=== PATIENT | male | born 1965 | race Two or more races ===

== ENCOUNTER 2016-09-15 01:00 | Inpatient (IN) | payer MEDICAID ==
[2016-09-15 01:39] VITALS: BP 138/89
[2016-09-15] MEDS ORDERED: Hydrocodone/APAP 5mg/325mg Tab PO PRN (02:41)
[2016-09-15] MEDS ORDERED: Maalox 30 mL Cup PO PRN (02:41)
[2016-09-15] MEDS ORDERED: D5-0.9%NS 1,000 ML IV SCH (02:45)
[2016-09-15 03:03] LABS: % BASOPHILS 0.4 % (0.0-2.0); % EOSINOPHILS 0.1 % (0.0-5.0); % LYMPHOCYTES 3.5 % (20.0-50.0); % MONOCYTES 9.2 % (2.0-10.0); % NEUTROPHILS 86.8 % (40.0-80.0); HEMATOCRIT 39.6 % (39.0-49.0); HEMOGLOBIN 13.6 gm/dL (13.2-17.3); MEAN CELL VOLUME 91.6 fl (80-99); MEAN CORPUSCULAR HEMOGLOBIN 31.4 pg (26.0-30.0); MEAN CORPUSCULAR HGB CONC 34.3 pg (28.0-36.0); MEAN PLATELET VOLUME 7.4 fl; NEUTROPHILE ABSOLUTE 13.7 Th/cmm (1.8-8.0); PLATELET COUNT 249 Th/cmm (150-400); RED BLOOD COUNT 4.32 Mil/cmm (4.30-5.70); RED CELL DISTRIBUTION WIDTH 11.7 % (11.5-20.0)
[2016-09-15 03:12] LABS: WHITE BLOOD COUNT 15.9 Th/cmm (4.8-10.8)
[2016-09-15 03:28] LABS: PROTHROMBIN TIME (TEST) 10.4 SECONDS (9.5-11.5)
[2016-09-15 03:29] LABS: ALB/GLOB RATIO 1.5 (1.0-1.8); ALKALINE PHOSPHATASE 82 U/L (34-104); ANION GAP 7.2 (7.0-16.0); BILIRUBIN,TOTAL 0.6 mg/dL (0.3-1.0); BUN - UREA NITROGEN 16 mg/dL (7-25); CARBON DIOXIDE 26.8 mEq/L (21.0-31.0); CHLORIDE 107 mEq/L (98-107); CREATININE - SERUM 0.8 mg/dL (0.7-1.3); GLUCOSE 185 mg/dL (70-105); SGOT 30 U/L (13-39); SGPT/ALT 25 U/L (7-52); SODIUM SERUM 137 mEq/L (136-145)
[2016-09-15 03:30] LABS: CHOLESTEROL 162 mg/dL (<200); TRIGLYCERIDES 193 mg/dL (<150)
[2016-09-15] MEDS: Morphine Sulfate 2 mg/mL 1mL Syr IVP PRN ×4 (05:50→21:51)
--- NOTE | 2016-09-15 09:43 | Diagnostic Imaging Report ---
CHEST X-RAY: AP view INDICATION: Shortness of breath COMPARISON: None FINDINGS: Mild increased interstitial lung markings are noted. No focal consolidation or effusions. Suboptimal lung volumes are noted. Heart size is at the upper limits of normal. Osseous structures are intact. IMPRESSION: Mild increased lung markings. Note that a marginal degree of congestion cannot be excluded. No focal consolidation identified.
--- NOTE | 2016-09-15 09:54 | Diagnostic Imaging Report ---
Right ankle 2 views Indication: Fracture Comparison: none Findings: Exam is limited due to overlying cast material. There is a severe comminuted fracture of the distal tibia. The fracture may extend to the articular surface. There are also comminuted fractures of the mid and distal fibular shafts. Impression: Limited exam due to overlying cast. There is severe comminuted fracture of the distal tibia. There are also comminuted fractures involving the mid and distal fibular shafts. Please correlate clinically.
[2016-09-15 10:17] LABS: URINE BILIRUBIN NEGATIVE (NEGATIVE); URINE BLOOD NEGATIVE (NEGATIVE); URINE COLOR YELLOW; URINE GLUCOSE (UA) NEGATIVE (NEGATIVE); URINE KETONE NEGATIVE (NEGATIVE); URINE PROTEIN NEGATIVE (NEGATIVE); URINE UROBILINOGEN 0.2 E.U./dL (0.2 - 1.0)
[2016-09-15 10:18] LABS: URINE BACTERIA NONE SEEN /hpf (NONE SEEN); URINE EPITHELIAL CELLS RARE /lpf (FEW); URINE RBC 0-2 /hpf (0-5)
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
[2016-09-15] MEDS ORDERED: Sodium Chloride 0.9% IRR 1,000 ML IV ONE (15:55)
--- NOTE | 2016-09-15 15:55 | Admit Criteria Form ---
Admit Criteria Forms - Admit Criteria Diagnosis: MUSCULOSKELETAL DISEASE [facility] Clinical Indications for Admission to Inpatient Care (Place 'X' for any and all applicable criteria): Hospital admission is needed for appropriate care of the patient because of 1 or more of the following: [X ]I. Fracture, dislocation, or other musculoskeletal injury requiring inpatient care(medical) as indicated by 1 or more of the following(4)(5)(6)(7) [ ]a) Vertebral fracture requiring observation for instability or neurologic compromise (8) [ ]b) Compartment syndrome (proven or cannot be ruled out during observation level of care) (9) [ ]c) Limb-threatening injury [ ]d) Major injury requiring inpatient stabilization such as traction initiation or external fixation before internal fixation or closure of complex or open fracture [X ]e) Major injury requiring inpatient treatment after emergency or observation level care (as appropriate) [ ]f) Severe pain requiring acute inpatient management [ ]g) Injury with suspicion of abuse or neglect (eg., child, dependent elderly) [ ]II. Newly diagnosed or suspected bone, joint, or orthopedic device infection (e.g., osteomyelitis, septic arthritis) needing 1 or more of the following(1)(2)(3) [ ]a) IV antibiotics that cannot be initiated in other than inpatient setting (e.g., patient too unstable or home infusion not available) [ ]b) Device removal or replacement [ ]c) Bone or soft tissue debridement [ ]d) Joint drainage (drain placement or repetitive aspirations) [ ]III. Severe rheumatologic disease (e.g., systemic lupus erythematosus, rheumatoid arthritis) with complications or comorbidities (Also use Optimal Recovery Care Criteria or General Recovery Criteria as appropriate on the basis of predominant condition), including 1 or more of the following( 10)(11)(12)(13) [ ]a) Severe infection (e.g., CRUMB PACKER infection, sepsis) (14) [ ]b) Respiratory complications, including 1 or more of the following : [ ]i) Pleural effusion with respiratory compromise [ ]ii) Pulmonary hypertension with congestive failure [ ]iii) Respiratory failure [ ]iv) Pulmonary hemorrhage (15) [ ]c) Hematologic disease, including 1 or more of the following: [ ]i) Coagulopathy with bleeding [ ]ii) Thrombosis with hypercoagulable state [ ]iii) Thrombotic thrombocytopenic purpura [ ]d) Cerebritis with seizures, psychosis, or other severe abnormalities [ ]e) Vertebral destruction with monitoring needed for cervical myelopathy& possible respiratory compromise [ ]f) Exacerbation that requires inpatient treatment (e.g., intravenous immunosuppression) (16) [ ]g) Acute renal failure [ ]h) Cerebritis with seizures, psychosis, Altered mental status, or other neurologic abnormalities [ ]i) Pericardial effusion with tamponade [ ]j) Vertebral destruction, with monitoring needed for cervical myelopathy and possible respiratory compromise [ ]IV. Severe vasculitis with complications or comorbidities (Also use Optimal Recovery Care Criteria General Recovery Criteria as appropriate on the basis of predominant condition), including 1 or more of the following(11)(12)(17)(18)(19)(20) [ ]a) Exacerbation that requires inpatient treatment (e.g., intravenous immunosuppression) (19)(21) [ ]b) Pulmonary hemorrhage (15) [ ]c) CRUMB PACKER vasculitis with seizures, psychosis, Altered mental status that is severe or persistent, or other severe abnormalities (22) [ ]d) Cerebral infarction [ ]e) Gastrointestinal ischemia [ ]f) Gangrene or threatened amputation [ ]g) Renal failure (16) [ ]h) Other significant complications of vasculitis ( eg., tissue or organ ischemia, organ dysfunction ) [ ]V. Severe myopathy as indicated by 1 or more of the following (28)(29) [ ]a) New onset of airway compromise or inability to swallow [ ]b) Respiratory deterioration with observation needed for impending respiratory failure [ ]c) Exacerbation that requires inpatient treatment (e.g., intravenous immunosuppression) [ ]. Severe crystal gout (arthropathy) indicated by 1 or more of the following (23)(24) [ ]a) Severe pain requiring acute inpatient management [ ]b) Exacerbation that requires inpatient treatment (e.g., intravenous treatment) [ ]VII.Rhabdomyolysis and 1 or more of the following (25)(26)(27) [ ]a) Acute renal failure [ ]b) Need for intravenous hydration after emergency or observation level care (as appropriate) [ ]c) Inability to maintain oral hydration [ ]d) Change in mental status [ ]e) Electrolyte abnormality that remains after emergency or observation level care (as appropriate) [ ]VIII Post amputation complication, as indicated by ANY ONE of the following [ ]a) Infection [ ]b) Dehiscence [ ]c) Myodesis failure [ ]IX. Severe pain requiring acute inpatient management due to musculoskeletal condition [ ]X. Musculoskeletal Disease and ALL of the following: [ ]a) Symptom or finding for which emergency and observation care have failed or are not considered appropriate (Use General Criteria: Observation Care as appropriate) [ ]b) Presence of ANY ONE of the following [ ]i) A General Admission Criteria [ ]ii) A Pediatric General Admission Criteria The original [facility] content created by [facility] has been revised. The portions of the content which have been revised are identified through the use of italic text or in bold, and [facility] has neither reviewed nor approved the modified material. All other unmodified content is copyright [facility]. Please see references footnoted in the original [facility] edition 2016 Admit Criteria Met?: Yes
[2016-09-15] MEDS ORDERED: Midazolam 1mg/ml 2 ml vial IV ONE (16:30)
[2016-09-15] MEDS ORDERED: Bupivacaine 0.75% 10 mL Vial ONE (16:34)
[2016-09-15] MEDS ORDERED: Meperidine 25 mg/mL 1mL Syr IVP PRN (16:48)
[2016-09-15] MEDS ORDERED: Lactated Ringer 1,000 ML IV SCH (17:00)
[2016-09-15] MEDS: Hydrocodone/APAP 10 mg/325 mg Tab PO PRN (22:27)
[2016-09-15] MEDS: Magnesium Hydroxide (MOM) 30 mL UDC PO PRN (23:37)
--- NOTE | 2016-09-16 00:20 | Operative Report ---
DATE OF SURGERY: 09/15/2016 SURGEON: Simon Goldsmith M.D. COLLEGE INTERN: ____ and Dr. Rolando Capone____. DETAILS OF THE OPERATION: After the patient was given the spinal anesthesia and sedation, the part was scrubbed and was draped in an aseptic manner. After examination under the fluoroscopy in AP and lateral of the right ankle, it was found there were many fragments of the ankle, distal tibia, they were intra-articular, markedly displaced and he had a laceration on the medial side communicating with the bone, so it was really a compound fracture of the right ankle. The original incision was enlarged distally as well as proximally for us to see the tibia and see all the fragments. This patient had a shortening of the right leg from the distal tibia to the talus because there were 6 to 7 fragment in between, which were not possible to put it together like a ____, so it was decided to put a plate on the medial side between the talus and the tibia, so as to keep the length of the leg and the bones, which were very loose were pacted in the space in between the distal tibia and the talus. The plafond of the tibia was completely smashed; there, it was not possible to put the bones together, so it was decided to pack them in between and then the wound was thoroughly irrigated. Bleeding points coagulated. Deep sutures were applied with a 2-0 Vicryl and skin with a 1-0 and 2-0 Vicryl and after the application of the bulky dressing, a ____shaped splint was applied and the patient was transferred to the recovery room in a satisfactory condition. The plan in this patient will be after the operation that it will have to be decided that this ankle will need to be fused and there is a possibility that it may need a josep and then that fracture may have to be done at later stage after this wound has healed. Postoperatively, he will be in the splint and the decision will be made for the plan of the operation for the fusion of the right ankle. JOB# [id number]
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
[2016-09-16] MEDS: Lactated Ringer 1,000 ML IV SCH ×2 (04:45→16:18)
[2016-09-16] MEDS: Morphine Sulfate 2 mg/mL 1mL Syr IVP PRN ×5 (05:39→22:50)
[2016-09-16 07:17] LABS: MEAN CORPUSCULAR HEMOGLOBIN 32.3 pg (26.0-30.0)
[2016-09-16 07:28] LABS: % EOSINOPHILS 0.2 % (0.0-5.0); % MONOCYTES 13.2 % (2.0-10.0); % NEUTROPHILS 78.6 % (40.0-80.0); MEAN CELL VOLUME 90.7 fl (80-99); MEAN CORPUSCULAR HGB CONC 35.6 pg (28.0-36.0); NEUTROPHILE ABSOLUTE 9.4 Th/cmm (1.8-8.0); PLATELET COUNT 210 Th/cmm (150-400); RED BLOOD COUNT 3.59 Mil/cmm (4.30-5.70); RED CELL DISTRIBUTION WIDTH 11.4 % (11.5-20.0)
[2016-09-16 07:37] LABS: BUN - UREA NITROGEN 10 mg/dL (7-25); BUN/CREATININE RATIO 14.3; CALCIUM SERUM 8.8 mg/dL (8.6-10.3); CARBON DIOXIDE 27.9 mEq/L (21.0-31.0); CHLORIDE 103 mEq/L (98-107); CREATININE - SERUM 0.7 mg/dL (0.7-1.3); GLUCOSE 148 mg/dL (70-105); POTASSIUM SERUM 3.9 mEq/L (3.5-5.1); SODIUM SERUM 135 mEq/L (136-145)
[2016-09-16 07:45] LABS: HEMOGLOBIN 11.6 gm/dL (13.2-17.3)
[2016-09-16 07:46] LABS: HEMATOCRIT 32.6 % (39.0-49.0)
[2016-09-16] MEDS: Hydrocodone/APAP 10 mg/325 mg Tab PO PRN (09:14)
[2016-09-16] MEDS: Magnesium Hydroxide (MOM) 30 mL UDC PO PRN (09:27)
[2016-09-17] MEDS: Hydrocodone/APAP 10 mg/325 mg Tab PO PRN ×2 (00:34→22:03)
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
[2016-09-17 06:00] LABS: % BASOPHILS 0.7 % (0.0-2.0); % EOSINOPHILS 0.8 % (0.0-5.0); % LYMPHOCYTES 9.2 % (20.0-50.0); % MONOCYTES 12.2 % (2.0-10.0); % NEUTROPHILS 77.1 % (40.0-80.0); HEMATOCRIT 33.7 % (39.0-49.0); HEMOGLOBIN 11.7 gm/dL (13.2-17.3); MEAN CELL VOLUME 92.3 fl (80-99); MEAN CORPUSCULAR HGB CONC 34.6 pg (28.0-36.0); MEAN PLATELET VOLUME 7.3 fl; NEUTROPHILE ABSOLUTE 8.7 Th/cmm (1.8-8.0); PLATELET COUNT 216 Th/cmm (150-400); RED BLOOD COUNT 3.65 Mil/cmm (4.30-5.70); RED CELL DISTRIBUTION WIDTH 11.9 % (11.5-20.0); WHITE BLOOD COUNT 11.3 Th/cmm (4.8-10.8)
[2016-09-17 06:18] LABS: ANION GAP 8.8 (7.0-16.0); BUN - UREA NITROGEN 10 mg/dL (7-25); BUN/CREATININE RATIO 12.5; CARBON DIOXIDE 29.3 mEq/L (21.0-31.0); CHLORIDE 102 mEq/L (98-107); CREATININE - SERUM 0.8 mg/dL (0.7-1.3); GLUCOSE 141 mg/dL (70-105); POTASSIUM SERUM 4.1 mEq/L (3.5-5.1); SODIUM SERUM 136 mEq/L (136-145)
[2016-09-17] MEDS: APAP/Codeine 300 mg/30 mg Tab PO PRN (08:58)
[2016-09-17] MEDS: Morphine Sulfate 2 mg/mL 1mL Syr IVP PRN ×2 (12:20→18:58)
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
[2016-09-17] MEDS: Cefepime 2 GM in Sodium Chloride 0.9% 100 ML IV SCH (14:21)
[2016-09-18] MEDS: Cefepime 2 GM in Sodium Chloride 0.9% 100 ML IV SCH ×2 (00:21→13:24)
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
[2016-09-18 06:03] LABS: % BASOPHILS 0.9 % (0.0-2.0); % EOSINOPHILS 1.4 % (0.0-5.0); % LYMPHOCYTES 12.5 % (20.0-50.0); % NEUTROPHILS 73.2 % (40.0-80.0); HEMATOCRIT 34.5 % (39.0-49.0); HEMOGLOBIN 11.9 gm/dL (13.2-17.3); MEAN CELL VOLUME 90.3 fl (80-99); MEAN CORPUSCULAR HEMOGLOBIN 31.2 pg (26.0-30.0); MEAN CORPUSCULAR HGB CONC 34.6 pg (28.0-36.0); MEAN PLATELET VOLUME 7.4 fl; NEUTROPHILE ABSOLUTE 7.6 Th/cmm (1.8-8.0); PLATELET COUNT 264 Th/cmm (150-400); RED BLOOD COUNT 3.82 Mil/cmm (4.30-5.70); RED CELL DISTRIBUTION WIDTH 11.5 % (11.5-20.0); WHITE BLOOD COUNT 10.3 Th/cmm (4.8-10.8)
[2016-09-18 06:24] LABS: ALB/GLOB RATIO 1.2 (1.0-1.8); ALKALINE PHOSPHATASE 71 U/L (34-104); ANION GAP 12.7 (7.0-16.0); BILIRUBIN,TOTAL 1.1 mg/dL (0.3-1.0); BUN - UREA NITROGEN 15 mg/dL (7-25); BUN/CREATININE RATIO 21.4; CALCIUM SERUM 9.4 mg/dL (8.6-10.3); CARBON DIOXIDE 28.4 mEq/L (21.0-31.0); CHLORIDE 102 mEq/L (98-107); CREATININE - SERUM 0.7 mg/dL (0.7-1.3); GLUCOSE 121 mg/dL (70-105); POTASSIUM SERUM 4.1 mEq/L (3.5-5.1); SGOT 57 U/L (13-39); SGPT/ALT 45 U/L (7-52); SODIUM SERUM 139 mEq/L (136-145)
[2016-09-18] MEDS: Hydrocodone/APAP 10 mg/325 mg Tab PO PRN ×2 (08:28→15:24)
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
[2016-09-19] MEDS: Cefepime 2 GM in Sodium Chloride 0.9% 100 ML IV SCH ×2 (01:37→12:15)
[2016-09-19 05:48] LABS: % BASOPHILS 0.9 % (0.0-2.0); % EOSINOPHILS 2.1 % (0.0-5.0); % LYMPHOCYTES 15.5 % (20.0-50.0); % MONOCYTES 11.2 % (2.0-10.0); % NEUTROPHILS 70.3 % (40.0-80.0); HEMOGLOBIN 10.5 gm/dL (13.2-17.3); MEAN CELL VOLUME 90.7 fl (80-99); MEAN CORPUSCULAR HEMOGLOBIN 31.5 pg (26.0-30.0); MEAN CORPUSCULAR HGB CONC 34.7 pg (28.0-36.0); MEAN PLATELET VOLUME 7.3 fl; NEUTROPHILE ABSOLUTE 6.6 Th/cmm (1.8-8.0); PLATELET COUNT 292 Th/cmm (150-400); RED BLOOD COUNT 3.34 Mil/cmm (4.30-5.70); RED CELL DISTRIBUTION WIDTH 11.7 % (11.5-20.0); WHITE BLOOD COUNT 9.5 Th/cmm (4.8-10.8)
[2016-09-19 05:59] LABS: HEMATOCRIT 30.2 % (39.0-49.0)
[2016-09-19 06:39] LABS: ANION GAP 9.7 (7.0-16.0); BUN - UREA NITROGEN 17 mg/dL (7-25); BUN/CREATININE RATIO 28.3; CALCIUM SERUM 8.9 mg/dL (8.6-10.3); CHLORIDE 102 mEq/L (98-107); CREATININE - SERUM 0.6 mg/dL (0.7-1.3); GLUCOSE 126 mg/dL (70-105); POTASSIUM SERUM 3.7 mEq/L (3.5-5.1); SODIUM SERUM 136 mEq/L (136-145)
--- NOTE | 2016-09-19 11:46 | Diagnostic Imaging Report ---
Right lower extremity DVT study HISTORY: Pain rule out DVT COMPARISON: None Technique: Longitudinal and transverse sonographic images of the right lower extremity veins were obtained with doppler analysis. FINDINGS: There is normal compressibility, augmentation and phasicity of the right common femoral, superficial femoral, and popliteal vein. The right posterior tibial vein and peroneal vein was not visualized due to overlying bandage from recent surgery. IMPRESSION: Nonvisualization of the right posterior tibial and peroneal veins due to overlying bandage from recent surgery. Otherwise no evidence of DVT formation.
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
[2016-09-19] MEDS: Hydrocodone/APAP 10 mg/325 mg Tab PO PRN ×2 (13:41→19:57)
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
[2016-09-20] MEDS: APAP/Codeine 300 mg/30 mg Tab PO PRN ×2 (00:12→20:44)
[2016-09-20] MEDS: Cefepime 2 GM in Sodium Chloride 0.9% 100 ML IV SCH ×2 (00:36→13:24)
[2016-09-20] MEDS: Hydrocodone/APAP 10 mg/325 mg Tab PO PRN ×4 (03:19→22:26)
--- NOTE | 2016-09-20 10:39 | Diagnostic Imaging Report ---
Right lower extremity arterial Doppler study HISTORY: Recent surgery. Note, recent right lower extremity DVT exam was negative for DVT COMPARISON: Right lower extremity venous Doppler the same day Technique: Longitudinal and transverse sonographic images of the right lower extremity arteries were obtained with doppler analysis. FINDINGS: Exam of the right side demonstrates intimal thickening and mild to moderate generalized atherosclerotic vascular disease. Triphasic flow is demonstrated from the right common femoral to the right posterior tibial artery. The right anterior tibialis, posterior tibialis, and dorsalis pedis arteries were not visualized due to overlying bandages. ABIs were also not able to be performed. IMPRESSION: Mild/moderate atherosclerotic vascular disease of the right lower extremity. No evidence of hemodynamically significant stenosis. Note that the right tibialis anterior, tibialis posterior, and dorsalis pedis artery were not able to be visualized due to overlying bandages.
--- NOTE | 2016-09-20 13:09 | Diagnostic Imaging Report ---
CHEST X-RAY: AP view INDICATION: PICC line placement z COMPARISON: 09/15/2016 FINDINGS: Left PICC line is in place with tip in the SVC. No focal consolidation or pleural effusions. Left basal subsegmental atelectasis versus scarring is noted. Mild chronic changes are noted. Heart size is normal. Osseous structures are intact. IMPRESSION: Interval new left PICC line placement with tip in SVC. Left basal subsegmental atelectasis versus scarring. No focal consolidation identified.
--- NOTE | 2016-09-20 14:46 | Diagnostic Imaging Report ---
Fluoroscopy was utilized for facilitation of internal fixation of the right ankle. Please refer to the surgical report for complete details.
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
[2016-09-21] MEDS: Cefepime 2 GM in Sodium Chloride 0.9% 100 ML IV SCH ×2 (01:32→13:30)
[2016-09-21] MEDS: Hydrocodone/APAP 10 mg/325 mg Tab PO PRN ×4 (03:54→22:05)
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
[2016-09-21 06:03] LABS: % BASOPHILS 0.2 % (0.0-2.0); % EOSINOPHILS 2.4 % (0.0-5.0); % LYMPHOCYTES 12.4 % (20.0-50.0); % MONOCYTES 13.3 % (2.0-10.0); % NEUTROPHILS 71.7 % (40.0-80.0); HEMOGLOBIN 10.2 gm/dL (13.2-17.3); MEAN CELL VOLUME 90.2 fl (80-99); MEAN CORPUSCULAR HEMOGLOBIN 31.6 pg (26.0-30.0); MEAN CORPUSCULAR HGB CONC 35.1 pg (28.0-36.0); MEAN PLATELET VOLUME 6.8 fl; NEUTROPHILE ABSOLUTE 7.2 Th/cmm (1.8-8.0); RED BLOOD COUNT 3.21 Mil/cmm (4.30-5.70); RED CELL DISTRIBUTION WIDTH 11.3 % (11.5-20.0); WHITE BLOOD COUNT 9.9 Th/cmm (4.8-10.8)
[2016-09-21 06:13] LABS: PLATELET COUNT 357 Th/cmm (150-400)
[2016-09-21 09:34] LABS: ANION GAP 6.3 (7.0-16.0); BUN - UREA NITROGEN 17 mg/dL (7-25); BUN/CREATININE RATIO 24.3; CALCIUM SERUM 9.5 mg/dL (8.6-10.3); CARBON DIOXIDE 27.1 mEq/L (21.0-31.0); CHLORIDE 103 mEq/L (98-107); CREATININE - SERUM 0.7 mg/dL (0.7-1.3); GLUCOSE 217 mg/dL (70-105); POTASSIUM SERUM 3.4 mEq/L (3.5-5.1); SODIUM SERUM 133 mEq/L (136-145)
[2016-09-21 09:36] LABS: VANCOMYCIN TROUGH 5.7 ug/mL (10-20)
[2016-09-21] MEDS: Magnesium Hydroxide (MOM) 30 mL UDC PO PRN (10:08)
[2016-09-21] MEDS ORDERED: Vancomycin HCl 1.5 GM in Sodium Chloride 0.9% 500 ML IV SCH (10:15)
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
[2016-09-21] MEDS ORDERED: Potassium Chloride 20 mEq ER Tab PO ONE (17:58)
[2016-09-22] MEDS: Cefepime 2 GM in Sodium Chloride 0.9% 100 ML IV SCH ×2 (02:11→15:02)
[2016-09-22] MEDS: Hydrocodone/APAP 10 mg/325 mg Tab PO PRN ×2 (05:39→21:55)
--- NOTE | 2016-09-22 05:49 | Progress Notes ---
DATE: 09/21/2016 SUBJECTIVE: The patient is awake, alert. The patient is receiving inpatient rehab. The patient is on IV antibiotics. OBJECTIVE: VITAL SIGNS: Temperature is 97.7, pulse 87, blood pressure per nursing, respirations 18, O2 sat 97% on room air. CARDIAC: S1, S2. RESPIRATORY: Clear. GASTROINTESTINAL: Soft, positive bowel sounds. LABORATORY STUDIES: Labs on the patient is: Hematology: WBC 9.9, hemoglobin 10.2, hematocrit 29.0, platelet count per labs, 12% lymphocytes, 13% monocytes. Chemistry: Sodium 133, potassium 3.4, chloride 103, bicarbonate 27, anion gap 6.3, BUN 17, creatinine 0.7, GFR per labs, glucose 217, calcium is 9.5. MICROBIOLOGY: MRSA screening from 09/15/2016 negative. Urine culture from 09/17/2016 shows no growth. Blood culture from 09/18/2016, negative. IMAGING DATA: Chest x-ray from 09/20/2016 showed left atelectasis versus scarring, no focal consolidation is identified. ASSESSMENT: 1. Status post open reduction and internal fixation of right tibia and fibula. 2. History of comminuted fracture, right ankle, tibia and fibula. 3. Debility. 4. Anemia. 5. Hyponatremia. 6. Hypokalemia. 7. Hyperglycemia. PLAN: Continue current medication. Obtain labs in a.m. Further recommendations per consults. Thank you very much. JOB# [id number] [facility]
[2016-09-22 05:55] LABS: % BASOPHILS 0.3 % (0.0-2.0); % EOSINOPHILS 2.4 % (0.0-5.0); % LYMPHOCYTES 12.7 % (20.0-50.0); % MONOCYTES 12.7 % (2.0-10.0); % NEUTROPHILS 71.9 % (40.0-80.0); HEMATOCRIT 29.2 % (39.0-49.0); HEMOGLOBIN 10.1 gm/dL (13.2-17.3); MEAN CELL VOLUME 90.6 fl (80-99); MEAN CORPUSCULAR HEMOGLOBIN 31.5 pg (26.0-30.0); MEAN CORPUSCULAR HGB CONC 34.8 pg (28.0-36.0); MEAN PLATELET VOLUME 6.9 fl; NEUTROPHILE ABSOLUTE 7.3 Th/cmm (1.8-8.0); PLATELET COUNT 400 Th/cmm (150-400); RED BLOOD COUNT 3.22 Mil/cmm (4.30-5.70); RED CELL DISTRIBUTION WIDTH 11.3 % (11.5-20.0); WHITE BLOOD COUNT 10.1 Th/cmm (4.8-10.8)
[2016-09-22 06:14] LABS: ALB/GLOB RATIO 1.2 (1.0-1.8); ALKALINE PHOSPHATASE 89 U/L (34-104); ANION GAP 7.1 (7.0-16.0); BUN - UREA NITROGEN 14 mg/dL (7-25); BUN/CREATININE RATIO 23.3; CALCIUM SERUM 9.3 mg/dL (8.6-10.3); CARBON DIOXIDE 28.8 mEq/L (21.0-31.0); CHLORIDE 103 mEq/L (98-107); CREATININE - SERUM 0.6 mg/dL (0.7-1.3); GLUCOSE 121 mg/dL (70-105); POTASSIUM SERUM 3.9 mEq/L (3.5-5.1); SGOT 76 U/L (13-39); SGPT/ALT 118 U/L (7-52); SODIUM SERUM 135 mEq/L (136-145)
--- NOTE | 2016-09-22 12:48 | Diagnostic Imaging Report ---
Right ankle 2 views Indication: Trauma, preop Comparison: Previous right ankle x-ray on 09/15/2016 demonstrating severely comminuted fractures. Findings: There is sideplate and screw fixation of the distal tibia to the talus with severely comminuted intra-articular fracture of the distal tibia again noted. Displaced fractures of the proximal to mid fibular shaft are again noted. No x-ray evidence of hardware loosening. Impression: Interval sideplate and screw fixation of the distal tibia to the talus with severely comminuted distal tibial fracture again noted with displacement again noted. Fibular shaft fractures. In the setting of trauma, if clinical symptoms persist and there is continued concern for an occult fracture, follow up exams in 5-7 days is suggested.
[2016-09-22] MEDS: APAP/Codeine 300 mg/30 mg Tab PO PRN (20:01)
[2016-09-23] MEDS: Hydrocodone/APAP 10 mg/325 mg Tab PO PRN ×2 (03:06→10:49)
[2016-09-23] MEDS: Cefepime 2 GM in Sodium Chloride 0.9% 100 ML IV SCH (03:26)
[2016-09-23 06:00] LABS: % LYMPHOCYTES 14.5 % (20.0-50.0); % MONOCYTES 12.2 % (2.0-10.0); % NEUTROPHILS 69.3 % (40.0-80.0); HEMATOCRIT 28.5 % (39.0-49.0); MEAN CELL VOLUME 90.5 fl (80-99); MEAN CORPUSCULAR HEMOGLOBIN 31.6 pg (26.0-30.0); MEAN CORPUSCULAR HGB CONC 34.9 pg (28.0-36.0); MEAN PLATELET VOLUME 6.6 fl; PLATELET COUNT 417 Th/cmm (150-400); RED BLOOD COUNT 3.15 Mil/cmm (4.30-5.70); RED CELL DISTRIBUTION WIDTH 11.4 % (11.5-20.0); WHITE BLOOD COUNT 8.8 Th/cmm (4.8-10.8)
[2016-09-23] MEDS: APAP/Codeine 300 mg/30 mg Tab PO PRN (06:03)
[2016-09-23 06:33] LABS: ALB/GLOB RATIO 1.1 (1.0-1.8); ALKALINE PHOSPHATASE 83 U/L (34-104); ANION GAP 2.1 (7.0-16.0); BILIRUBIN,TOTAL 0.9 mg/dL (0.3-1.0); BUN - UREA NITROGEN 14 mg/dL (7-25); BUN/CREATININE RATIO 23.3; CALCIUM SERUM 8.7 mg/dL (8.6-10.3); CARBON DIOXIDE 30.9 mEq/L (21.0-31.0); CHLORIDE 106 mEq/L (98-107); CREATININE - SERUM 0.6 mg/dL (0.7-1.3); GLUCOSE 109 mg/dL (70-105); SGOT 63 U/L (13-39); SGPT/ALT 111 U/L (7-52); SODIUM SERUM 135 mEq/L (136-145)
--- NOTE | 2016-09-23 08:15 | Progress Notes ---
DATE: 09/22/2016 SUBJECTIVE: The patient is awake, alert. The patient complains of right ankle pain. The patient received inpatient rehab therapy. The patient is on IV antibiotics. OBJECTIVE: VITAL SIGNS: Temperature 96.3, pulse 89, blood pressure 104/64, respiratory rate 18, O2 sat 98% on room air. CARDIOVASCULAR: S1 and S2. RESPIRATORY: Clear. GASTROINTESTINAL: Soft, positive bowel sounds. LABORATORY DATA: Labs on the patient is hematology, WBC 10.1, hemoglobin 10.1, hematocrit 29.2, platelet count per labs, 12% lymphocytes, 12% monocytes. ESR is 92. Chemistry: Sodium 135, potassium 3.9, chloride 103, bicarbonate 28, anion gap 7.1, BUN 14, creatinine 0.6, GFR is 160, glucose 121, calcium 9.3, total bilirubin is 1.0, AST 76, ALT is 118, phosphatase 89. Total protein 6.7, albumin 3.6, globulin 3.1. MICROBIOLOGY: MRSA screen from 08/21 negative. Culture from 09/17 shows no growth. Blood culture from 09/18 shows no growth. ASSESSMENT: 1. Anemia. 2. Hyponatremia. 3. Hyperglycemia. 4. Transaminitis. 5. Hypoalbuminemia. 6. Status post open reduction and internal fixation of right tibia and fibula. 7. History of intertrochanteric fracture of right ankle, tibia and fibula. 8. Debility. 9. Leukocytosis (secondary to right ankle wound). PLAN: Continue the patient on medication and treatment. Obtain labs in a.m. Continue inpatient rehab therapy. Further recommendations per orthopedics. Thank you very much. JOB# [id number] [facility]
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
--- NOTE | 2016-09-25 14:45 | Progress Notes ---
DATE: 09/23/2016 SUBJECTIVE: The patient is awake and alert. The patient's right ankle is in cast. The patient is on IV antibiotics. The patient is receiving inpatient rehab therapy. OBJECTIVE: VITAL SIGNS: Temperature 98.2, pulse 75, blood pressure 103/60, respirations 18, O2 sat 96% on room air. CARDIOVASCULAR: S1 and S2. RESPIRATORY: Clear. GASTROINTESTINAL: Soft, positive bowel sounds. LABORATORY DATA: Hematology; WBC 8.8, hemoglobin 10.0, hematocrit 28.5, platelet count of 417, 14% lymphocytes, 12% monocytes. Chemistry; sodium 135, potassium 4.0, chloride 106, bicarb 30, anion gap of 2.1, BUN 14, creatinine 0.6. GFR is 160. Glucose 109, calcium 8.7, total bilirubin 0.9, AST 63, ALT 111, alk phos 83. Total protein 6.5, albumin is 3.4, globulin 3.1. MICROBIOLOGY: MRSA screening from 09/15/2016 negative. Urine culture from 09/17/2016 negative. Blood culture from 09/18/2016 shows no growth. RADIOLOGY: Right ankle x-ray from 09/22/2016 shows sideplate and screw fixation distal tibia to the talus with severely comminuted distal tibial fracture again noted with displacement again noted. Fibular shaft fractures. ASSESSMENT: 1. Status post open reduction and internal fixation of right tibia and fibula. 2. History of severely comminuted distal tibial fracture and history of fibular fracture. 3. Anemia. 4. Thrombocytosis. 5. Hyponatremia. 6. Hyperglycemia. 7. Transaminitis. 8. Hypoalbuminemia. 9. Right ankle wound infection. 10. Debility. PLAN: Continue current treatment. security program manager is for discharge planning. The patient will require a followup with Orthopedics for repeat surgery in the future. JOB# [id number] [facility]
== END 2016-09-23 12:30 | disposition home or self-care (01) | DRG 313 ==
LOC: MSI 01:00
PROVIDERS: ADMIT Preventive Medicine Preventive Medicine/Occupational Environmental Medicine; ATTEND Preventive Medicine Preventive Medicine/Occupational Environmental Medicine
PROC: 2W3QX1Z Immobilization of Right Lower Leg using Splint (ICD-10-PCS; principal; 2016-09-15)
PROC: 0QSG04Z Reposition Right Tibia with Internal Fixation Device, Open Approach (ICD-10-PCS; 2016-09-15)
PROC: 0QSJ04Z Reposition Right Fibula with Internal Fixation Device, Open Approach (ICD-10-PCS; 2016-09-15)
PROC: 02HV33Z Insertion of Infusion Device into Superior Vena Cava, Percutaneous Approach (ICD-10-PCS; 2016-09-15)
DX: S82.851B Displaced trimalleolar fracture of right lower leg, initial encounter for open fracture type I or II (principal); R65.10 Systemic inflammatory response syndrome (SIRS) of non-infectious origin without acute organ dysfunction; E87.1 Hypo-osmolality and hyponatremia; E83.52 Hypercalcemia; S91.001A Unspecified open wound, right ankle, initial encounter; E78.5 Hyperlipidemia, unspecified; D47.3 Essential (hemorrhagic) thrombocythemia; S82.451A Displaced comminuted fracture of shaft of right fibula, initial encounter for closed fracture; V49.9XXA Car occupant (driver) (passenger) injured in unspecified traffic accident, initial encounter; D72.829 Elevated white blood cell count, unspecified; R73.9 Hyperglycemia, unspecified; D64.9 Anemia, unspecified; E78.00 Pure hypercholesterolemia, unspecified; E87.6 Hypokalemia; L08.9 Local infection of the skin and subcutaneous tissue, unspecified; R53.81 Other malaise; Y92.488 Other paved roadways as the place of occurrence of the external cause; Y99.8 Other external cause status
CPT/HCPCS: 36415-UA; 71010-TC; 73562-TC-RT; 73600-TC-RT; 76000-TC; 80048-TC; 80053-TC; 80061-TC; 80202-TC; 81001-TC; 82948-90; 83036-90; 85025-TC; 85610-TC; 85652-TC; 86141-TC; 87075-90; 87086-90; 87205-90; 93005; 93926-RT-TC; 93971-TC-RT; 97530; A4217; C1751; J0690; J0692; J1885; J2250; J2270; J3370; J7040; J7042; J7121; X3904; X5716; X5790; X6776; Z7512; Z7610